=== PATIENT | female | born 1945 | race Caucasian/White ===

== ENCOUNTER 2023-10-06 22:30 | Emergency (ER) | payer OTHER, SELFPAY ==
--- NOTE | 2023-10-06 22:47 | ED.GENMED ---
History of Present Illness
General
Chief Complaint: CODE
Source: ambulance crew
Time Seen by Provider: 10/06/23 22:47
Travel History
Have you had any contact with someone who has COVID-19?: Unable to Answer
Do you have any symptoms of coronavirus? Fever > 100 degrees, chills, cough, shortness of breath, sore throat, loss of taste or smell, muscle aches, or headache?: Unable to Answer
History of Present Illness
History of Present Illness:
This is an 78-year-old female presents unresponsive. [place] [facility]. Patient stated she was not feeling well and so I took her back. She was last seen normal at 830. She was found at around 915
unresponsive on her porch. CPR was initiated at around 9:30 PM. EMS has given 7 rounds of epinephrine. Patient was defibrillated 1 time for V-fib. EMS reports that she has been in PEA. They also report fixed and dilated pupils and
unresponsiveness. Patient was intubated. Patient presents with a Fito device for CPR.
Past History
Past History
ED Past Medical History: Other (Unknown)
Phy Exam
Physical Exam
Physical Exam:
VITAL SIGNS: No palpable blood pressure, no pulses, no respiration.
GENERAL EXAM: Mottled
EYES: Pupils fixed
ENT: Patient intubated
NECK: No venous distention
RESPIRATORY: Equal breath sounds
CARDIAC: Absent heart sounds
VASCULAR: Absent pulses
MUSCULOSKELETAL: Unable to evaluate strength
EXTREMITIES: No edema or contractures
MDM/Problems Addressed
MDM/Problems Addressed:
Cardiopulmonary arrest
*[employer] Analyst Interpretation
Rate: bradycardiac
Interpretation: abnormal
*Critical Care Note
Total Time (30-74mins, 75-104mins- exclusive of procedures): 30 minutes
Data Reviewed
Source: ambulance crew
Further Testing Considered But Not Given:
Consider labs but patient unfortunately passed
Patient Management
Escalation/DeEscalation of care consider admission/obs:
Presents with lower of ACLS. Last seen at 8:30 PM. Family brought to bedside. After multiple rounds of epinephrine and bicarb efforts ended. Bedside ultrasound did not show any pericardial effusion. There was scant cardiac squeeze but no
pulses. Not compatible with life. Family agreed to cease further compressions and effort in light of findings and prolonged downtime
Update Note
Update Note:
Case was discussed with bio medical technician
ED Attending Note
-
Portions of this chart may have been created with voice recognition software.� Occasional wrong word or��sound alike� substitutions may have occurred due to the inherent limitations of voice recognition software.
Discharge Plan
Departure
Patient Disposition:
Date of Disposition: 10/06/23
Time of Disposition: 22:47
Discharge Problem:
Cardiopulmonary arrest
Interventions
Interventions:
*Risk Screen - Suicide Last Done: 10/06/23 22:31
*General Assessment Last Done: 10/06/23 22:31
*Neglect/Abuse Screening Last Done: 10/06/23 22:31
*Nursing Disposition Last Done: 10/07/23 00:46
ED- Cardiac Assessment Last Done: 10/06/23 22:42
ED- Pulmonary Assessment Last Done: 10/06/23 22:42
Discharge Date and Time
Discharge Date/Time: 10/07/23 00:48
Print Language: JORDANIAN
--- NOTE | 2023-10-06 23:10 | EDRN ---
Addendum entered by Eufemia Joaquin RN 10/07/23 00:39:
Spoke with noe manzo at [facility] who stated that based on age pt is not a candidate for donation.
Original Note:
Pt arrived via EMS cardiac arrest, last known well was at 2020 this evening. Pt was found unresponsive at 2100. Prior to arrival pt received 7 EPI, was defibrillated 1 time for VFIB, received 1L NSS, received compressions. In the ED pt received an
additional two doses of EPI, 2 doses of sodium bicarb, and compressions. Pt in a PEA rhythm. Time of declared at [address] tay following the completion of compressions. See CODE 9 sheet. Family was able to be at the bedside.
== END 2023-10-07 00:48 | disposition expired ==
LOC: EMR 22:30
PROVIDERS: EMERGENCY PHYSICIAN Emergency Medicine
DX: I46.9 Cardiac arrest, cause unspecified (principal); I49.01 Ventricular fibrillation
CPT/HCPCS: 99282